=== PATIENT | female | born 1955 | race Caucasian/White ===

== ENCOUNTER 2022-04-04 10:23 | Day surgery (SDC) | payer OTHER, BC ==
[~2022-04-04] VITALS: Ht 154.9 cm; Wt 45.4 kg
[2022-04-04] MEDS ORDERED: LIDOCAINE 2% 100 MG/5 ML UJET TP ONE (12:40)
[2022-04-04] MEDS ORDERED: fentaNYL citrate 0.05 MG/ML VIAL ONE (12:40)
[2022-04-04] MEDS ORDERED: MIDAZOLAM 2 MG/2 ML VIAL ONE (12:41)
[2022-04-04] MEDS ORDERED: fentaNYL citrate 0.05 MG/ML VIAL IVP ONE (13:45)
[2022-04-04] MEDS ORDERED: MIDAZOLAM 2 MG/2 ML VIAL IVP ONE (13:45)
== END 2022-04-04 14:00 | disposition home or self-care (01) ==
LOC: MDS 10:23 → MMU 10:24 → MDS 14:00
PROVIDERS: ATTEND Internal Medicine Gastroenterology
DX: K62.5 Hemorrhage of anus and rectum (principal); K57.30 Diverticulosis of large intestine without perforation or abscess without bleeding; K64.4 Residual hemorrhoidal skin tags; K59.00 Constipation, unspecified; Z80.0 Family history of malignant neoplasm of digestive organs; Z88.1 Allergy status to other antibiotic agents; Z79.899 Other long term (current) drug therapy; Z20.822 Contact with and (suspected) exposure to COVID-19
CPT/HCPCS: 45378; 87426; J2250; J3010